=== PATIENT | female | born 1985 | race American Indian/Alaskan Native ===

== ENCOUNTER 2017-03-04 19:43 | Emergency (ER) | payer BC, OTHER ==
[2017-03-04 19:52] VITALS: BP 116/69; PULSE 93; TEMP 98; BMI 37.2
--- NOTE | 2017-03-04 20:39 | PDOC ---
History of Present Illness - History of Present Illness Initial Comments: 03/04/17 20:46 The patient is a 31 year old female, 25 weeks , with a significant past medical history of, who presents to the emergency department sent by her Programmer with persistent cough and itchy throat for rule out Zika Virus since the patient s recent return from [place], [place]. The patient states she was seen at a clinic and diagnosed with an upper respiratory infection, however, the patient states her Programmer is concerned for Zika virus given the patients recent travels and . The patient denies any other symptoms. She denies chest pain, shortness of breath, headache and dizziness. She denies fever, chills, nausea, vomit, diarrhea and constipation. She denies dysuria, frequency, urgency and hematuria. Allergies: NKDA Social history: denies toxic habits <Tamera Escobar - Last Filed: 03/04/17 20:47> <Sakina Mata - Last Filed: 03/05/17 02:49> - General Chief Complaint: Respiratory Stated Complaint: COUGH/SCRATCHY THROAT Time Seen by Provider: 03/04/17 19:47 Past History <Tamera Escobar - Last Filed: 03/04/17 20:47> - Past Medical History Other medical history: DENIES - Psycho/Social/Smoking Cessation Hx Anxiety: No Suicidal Ideation: No Smoking Status: No Smoking History: Never smoked Have you smoked in the past 12 months: No Number of Cigarettes Smoked Daily: 0 Information on smoking cessation initiated: No Hx Alcohol Use: No Drug/Substance Use Hx: No Substance Use Type: None <Sakina Mata - Last Filed: 03/05/17 02:49> - Past Medical History Allergies/Adverse Reactions: Allergies Allergy/AdvReac Type Severity Reaction Status Date / Time No Known Allergies Allergy Verified 03/04/17 19:47 Home Medications: Ambulatory Orders No Home Medications 0 dose .ROUTE UTDICT 07/04/13 Review of Systems - Review of Systems Able to Perform ROS?: Yes Comments:: 03/04/17 20:47 CONSTITUTIONAL: Absent: fever, chills, diaphoresis, generalized weakness, malaise, loss of appetite HEENT: (+) itchy throat, Absent: rhinorrhea, nasal congestion, throat swelling, difficulty swallowing,mouth swelling, ear pain, eye pain, visual Changes CARDIOVASCULAR: Absent: chest pain, syncope, palpitations, irregular heart rate, lightheadedness , peripheral edema RESPIRATORY: (+) cough, Absent: shortness of breath, dyspnea with exertion, orthopnea, wheezing, stridor, hemoptysis GASTROINTESTINAL: Absent: abdominal pain, abdominal distension, nausea, vomiting, diarrhea, constipation, melena, hematochezia GENITOURINARY: Absent: dysuria, frequency, urgency, hesitancy, hematuria, flank pain, genital pain MUSCULOSKELETAL: Absent: myalgia, arthralgia, joint swelling SKIN: Absent: rash, itching, pallor HEMATOLOGIC/IMMUNOLOGIC: Absent: easy bleeding, easy bruising, lymphadenopathy, frequent infections ENDOCRINE: Absent: unexplained weight gain, unexplained weight loss, heat intolerance, cold intolerance NEUROLOGIC: Absent: headache, focal weakness or paresthesias, dizziness, unsteady gait, seizure, mental status changes, bladder or bowel incontinence PSYCHIATRIC: Absent: anxiety, depression, suicidal or homicidal ideation, hallucinations. <Tamera Escobar - Last Filed: 03/04/17 20:47> *Physical Exam - Vital Signs Last Vital Signs Temp Pulse Resp BP Pulse Ox 98 F 93 H 16 116/69 100 03/04/17 19:49 03/04/17 19:49 03/04/17 19:49 03/04/17 19:49 03/04/17 19:49 - Physical Exam Comments: 03/04/17 20:48 GENERAL: The patient is awake, alert, and fully oriented, in no acute distress. HEAD: Normal with no signs of trauma. EYES: Pupils equal, round and reactive to light, extraocular movements intact, sclera anicteric, conjunctiva clear with no pallor. ENT: Ears normal, nares patent, oropharynx clear without exudates. Moist mucous membranes. NECK: Normal range of motion, supple without lymphadenopathy, JVD, or masses. LUNGS: Breath sounds equal, clear to auscultation bilaterally. No wheeze/ crackles. HEART: Regular rate and rhythm, normal S1 and S2 without murmur or rub. ABDOMEN: Soft/nontender/nondistended. BS wnl. No guarding or rebound. No palpable masses. No hepatosplenomegaly. EXTREMITIES: Normal range of motion, no edema. No clubbing or cyanosis. No cords , erythema, or tenderness. NEUROLOGICAL: Cranial nerves II through XII grossly intact. Normal speech, normal gait. PSYCH: Normal mood, normal affect. SKIN: Warm, Dry, normal turgor, no rashes or lesions noted. <Tamera Escobar - Last Filed: 03/04/17 20:47> - Vital Signs Last Vital Signs Temp Pulse Resp BP Pulse Ox 98 F 93 H 16 116/69 100 03/04/17 19:49 03/04/17 19:49 03/04/17 19:49 03/04/17 19:49 03/04/17 19:49 <Sakina Mata - Last Filed: 03/05/17 02:49> Medical Decision Making - Medical Decision Making Documentation has been prepared under my direction and personally reviewed by me in its entirety. I attest that this documented accurately reflects all work, treatment, procedures and medical decision making performed by me. 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 The patient was recently vacationing in [place] and [facility] ( arrived home the day before yesterday). She has had some nasal congestion/sore throat/nonproductive cough for a few days. She denies arthralgias/myalgias / rash/conjunctivitis. She has had several mosquito bites which are not particularly inflamed or bothersome. She consult that her logistics intern who wished the patient to receive testing for Zika virus. thus far has been without complications. Physical exam as noted. Since patient does not have significant erythema/ exudates of her throat or abnormal auscultatory findings on lung exam, no further testing will be pursued at this point. Serum and urine samples sent for Zika testing. Patient will follow-up with her logistics intern as scheduled. Her logistics intern is through the [facility] system and patient will need to obtain results through medical records . She should return to the emergency room if she has any worsening of her symptoms. <Sakina Mata - Last Filed: 03/05/17 02:49> *DC/Admit/Observation/Transfer - Attestations Scribe Attestion: 03/04/17 20:48 Documentation prepared by Tamera Escobar, acting as medical billing service for Sakina Mata MD <Tamera Escobar - Last Filed: 03/04/17 20:47> <Sakina Mata - Last Filed: 03/05/17 02:49> Diagnosis at time of Disposition: Bronchitis Pharyngitis Qualifiers: Pharyngitis/tonsillitis etiology: unspecified etiology Qualified Code(s): J02.9 - Acute pharyngitis, unspecified - Discharge Dispostion Disposition: HOME Condition at time of disposition: Stable - Patient Instructions Printed Discharge Instructions: DI for Acute Bronchitis, DI for Pharyngitis/ Tonsillopharyngitis -- Adult Additional Instructions: rest;drink plenty of fluids return to ER or see your doctor if throat pain/cough worsens return to ER or see your doctor if you develop high fever followup with your logistics intern as scheduled
[2017-03-21 16:24] LABS: ZIKA VIRUS SER. Negative
[2017-03-21 16:25] LABS: ZIKA VIRUS UR. Negative
[2017-04-08 12:22] LABS: ZIKA VIRUS SER. NEGATIVE; ZIKA VIRUS UR. NEGATIVE
== END 2017-03-04 21:08 | disposition home or self-care (01) ==
LOC: FER 19:43
DX: O26.892 Other specified pregnancy related conditions, second trimester (principal); Z3A.25 25 weeks gestation of pregnancy; J40 Bronchitis, not specified as acute or chronic; J02.9 Acute pharyngitis, unspecified
CPT/HCPCS: 36415; 99281-25

== ENCOUNTER 2018-01-30 23:58 | Emergency (ER) | payer BC, OTHER ==
[2018-01-31 00:03] VITALS: BP 106/63; PULSE 88; TEMP 98.8; BMI 37.8
--- NOTE | 2018-01-31 00:27 | PDOC ---
History of Present Illness - General Chief Complaint: Pain Stated Complaint: GENERALIZED ABD PAIN Time Seen by Provider: 01/31/18 00:08 - History of Present Illness Initial Comments: 01/31/18 00:39 This 32-year-old woman without significant past medical history presents with approximately 6 hour history of bilateral lower abdominal pain. Onset was at approximately 6:30 PM; she had eaten pizza just prior to this but her children also ate this pizza and had no symptoms. She describes pain as sharp and intermittent; it was accompanied by nausea. Pain was at its worse approximately 2 hours prior to presentation; she vomited at that time and had some relief of the pain afterwards. She denies fever or chills. She had a normal bowel movement this morning. She has not had dysuria/urinary frequency/ hematuria. She had generalized lower back pain last week. No history of kidney stones; no biliary tract abnormalities. No history of ovarian cysts Patient is several months and has just stopped breast-feeding. Has not resumed menstrual bleeding yet. Past History - Past Medical History Allergies/Adverse Reactions: Allergies Allergy/AdvReac Type Severity Reaction Status Date / Time No Known Allergies Allergy Verified 03/04/17 19:47 Home Medications: Ambulatory Orders No Home Medications 0 dose .ROUTE UTDICT 07/04/13 COPD: No - Suicide/Smoking/Psychosocial Hx Smoking Status: No Smoking History: Never smoked Have you smoked in the past 12 months: No Number of Cigarettes Smoked Daily: 0 Information on smoking cessation initiated: No Hx Alcohol Use: No Drug/Substance Use Hx: No Substance Use Type: None Review of Systems - Review of Systems Able to Perform ROS?: Yes Comments:: 12 point review of systems is negative except for what is noted in the history of present illness *Physical Exam - Vital Signs Last Vital Signs Temp Pulse Resp BP Pulse Ox 98.8 F 88 14 106/63 100 01/31/18 00:01 01/31/18 00:01 01/31/18 00:01 01/31/18 00:01 01/31/18 00:01 - Physical Exam Comments: GENERAL: Adult female, alert and oriented 3, in no acute distress HEAD: Normal with no signs of trauma. EYES: PERRLA, EOMI, sclera anicteric, conjunctiva clear. ENT: Ears normal, nares patent, oropharynx clear without exudates. Moist mucous membranes. NECK: Normal range of motion, supple without lymphadenopathy, JVD, or masses. LUNGS: Breath sounds equal, clear to auscultation bilaterally. No wheezes, and no crackles. HEART:Regular rate and rhythm, normal S1 and S2 without murmur, rub or gallop. ABDOMEN:.normal bowel sounds. Moderate bilateral lower quadrant tenderness No guarding or rebound.No masses No distention. EXTREMITIES: Normal range of motion, no edema. No clubbing or cyanosis. No erythema, or tenderness. NEUROLOGICAL: Cranial nerves II through XII grossly intact. Normal speech. No focal neurological deficits. MUSCULOSKELETAL: Back non-tender to palpation, no CVA tenderness SKIN: Warm, Dry, normal turgor, no rashes or lesions noted. ED Treatment Course - LABORATORY CBC & Chemistry Diagram: 01/31/18 01:00 01/31/18 01:00 Progress Note - Progress Note Progress Note: Laboratory evaluation shows minimal elevation of white blood cell count (10,200 ) but otherwise is essentially normal. Ultrasound of the abdomen/pelvis is performed and interpreted by Imaging distance education teacher : There is small amount of fluid in the cul-de-sac but otherwise no acute process is identified. Clinical presentation and fluid in the cul-de-sac suggests that etiology of the patient's pain is ruptured ovarian cyst. Patient is somewhat more comfortable after Toradol 30 mg IV. Patient will be discharged with instructions to use [id number] ibuprofen/ naproxen/acetaminophen as needed as well as to apply local warmth to the lower abdomen. She should return to the ER if she has severe, persistent pain or experiences fever/vomiting. Otherwise, she should follow-up with her county program technician as soon as possible (she should call office in the morning to arrange this follow-up) *DC/Admit/Observation/Transfer Diagnosis at time of Disposition: Ruptured ovarian cyst - Discharge Dispostion Disposition: HOME Condition at time of disposition: Stable - Referrals - Patient Instructions Printed Discharge Instructions: DI for Ovarian Cyst Additional Instructions: local warmth to lower abdomen Ibuprofen/naproxen/acetaminophen as needed Call your county program technician in the morning to arrange follow-up Return to ER if you have severe pain or experience vomiting/fever - Post Discharge Activity
[2018-01-31] MEDS ORDERED: SODIUM CHLORIDE 1,000 ML IV STA (00:47)
[2018-01-31] MEDS ORDERED: KETOROLAC TROMETHAMINE 30 MG/1 ML VIAL IVPUSH ONE (00:58)
[2018-01-31] MEDS ORDERED: ONDANSETRON 4 MG/2 ML VIAL IVPUSH ONE (00:58)
[2018-01-31] MEDS ORDERED: ONDANSETRON 4 MG/2 ML VIAL ONE (01:15)
[2018-01-31] MEDS ORDERED: KETOROLAC TROMETHAMINE 30 MG/1 ML VIAL ONE (01:15)
[2018-01-31 01:47] LABS: BASO % 0.3 % (0-2.0); EOS % 0.6 % (0-4.5); HEMATOCRIT 37.6 % (32.4-45.2); HEMOGLOBIN 12.8 GM/dL (10.7-15.3); LYMPH % 17.7 % (8-40); MCH 28.8 pg (25.7-33.7); MCHC 33.9 g/dl (32.0-36.0); MEAN CELL VOLUME 84.9 fl (80-96); MEAN PLT VOLUME 9.4 fl (7.5-11.1); MONO % 3.4 % (3.8-10.2); PLATELET COUNT 255 K/MM3 (134-434); RBC 4.43 M/mm3 (3.60-5.2); RDW 14.9 % (11.6-15.6); WHITE BLOOD COUNT 10.2 K/mm3 (4.0-10.0)
[2018-01-31 02:06] LABS: HCG,QUALITATIVE URINE NEGATIVE
[2018-01-31 02:12] LABS: ALBUMIN 3.9 g/dl (3.4-5.0); ALK PHOS 94 U/L (45-117); ANION GAP 10 (8-16); BILIRUBIN,TOTAL 0.4 mg/dL (0.2-1.0); BLOOD UREA NITROGEN 14 mg/dL (7-18); CALCIUM 8.6 mg/dL (8.5-10.1); CHLORIDE 102 mmol/L (98-107); CO2 25 mmol/L (21-32); CREATININE 0.6 mg/dL (0.55-1.02); GLUCOSE,RANDOM 100 mg/dL (74-106); POTASSIUM 4.1 mmol/L (3.5-5.1); SGOT/AST 13 U/L (15-37); SGPT/ALT 21 U/L (12-78); SODIUM 137 mmol/L (136-145); TOT PROT 7.6 g/dl (6.4-8.2); URINE APPEARANCE CLEAR; URINE BILIRUBIN NEGATIVE (NEGATIVE); URINE BLOOD NEGATIVE (NEGATIVE); URINE COLOR LTYELLOW; URINE GLUCOSE (UA) NEGATIVE (NEGATIVE); URINE KETONE NEGATIVE (NEGATIVE); URINE LEUK ESTERASE NEGATIVE (NEGATIVE); URINE NITRITE NEGATIVE (NEGATIVE); URINE PROTEIN NEGATIVE (NEGATIVE); URINE UROBILINOGEN NEGATIVE mg/dL (0.2-1.0)
[2018-01-31] MEDS ORDERED: KETOROLAC TROMETHAMINE 15 MG/ML VIAL IVPUSH ONE (03:22)
== END 2018-01-31 03:39 | disposition home or self-care (01) ==
LOC: FER 23:58
PROC: 3E0333Z Introduction of Anti-inflammatory into Peripheral Vein, Percutaneous Approach (ICD-10-PCS; principal; 2018-01-30)
PROC: 3E033GC Introduction of Other Therapeutic Substance into Peripheral Vein, Percutaneous Approach (ICD-10-PCS; 2018-01-30)
PROC: 3E0337Z Introduction of Electrolytic and Water Balance Substance into Peripheral Vein, Percutaneous Approach (ICD-10-PCS; 2018-01-30)
DX: N83.209 Unspecified ovarian cyst, unspecified side (principal)
CPT/HCPCS: 36415; 74176-TC; 80053; 81003; 84703; 85025; 99283-25; J7030